=== PATIENT | male | born 1955 | race Caucasian/White ===

== ENCOUNTER 2023-05-16 14:15 | Inpatient (IN) | payer MEDICARE, SELFPAY ==
[2023-05-16] VITALS (39 sets, daily range): BP systolic 141–179; BP diastolic 79–114; PULSE 75–152; RESP 12–36; TEMP 36.7–37.1; O2SAT 91–100; BMI 31.1
--- NOTE | ~2023-05-16 | US_ITS ---
EXAMINATION: US abdomen limited DATE: 05/17/2023 11:34 INDICATION: Gallbladder distention. TECHNIQUE: Multiple grayscale and Doppler ultrasound images of the abdomen were obtained. COMPARISON: Chest CT 05/16/2023 FINDINGS: The visualized portions of the head, body, and tail of the pancreas are normal. The liver i s normal without focal lesion. There is normal flow in main portal vein. The gallbladder is normal in size. No gallstones or gallbladder wall thickening. There is no sonographic Felix sign. The common duct is normal and measures 4 mm. IMPRESSION: 1. Normal right upper quadrant ultrasound. Reviewed, dictated and finalized at location E.
--- NOTE | ~2023-05-16 | US_ITS ---
EXAMINATION: US retroperitoneal duplex ltd DATE: 05/17/2023 11:32 INDICATION: Renal artery stenosis or occlusion. TECHNIQUE: Multiple grayscale, color Doppler, and pulsed Doppler images of the kidneys and renal joshua christin were obtained. COMPARISON: Chest CT 05/16/2023 FINDINGS: The aorta peak systolic velocity is 88 cm/s. The right renal artery peak systolic velocity is 52 cm/s in the proximal segment, 47 cm/s in the mid segment, and 57 cm/s in the distal segment. The left sonny al artery peak systolic velocity is 60 cm/s in the proximal segment, 94 cm/s in the mid segment, and 94 cm/s in the distal segment. IMPRESSION: 1. No Doppler evidence of renal artery stenosis. Given the CT findings, consider abdomen CTA. Reviewed, dictated and finalized at location E. IMPRESSION: 1. No Doppler evidence of renal artery stenosis. Given the CT findings, consid er abdomen CTA.
--- NOTE | ~2023-05-16 | XR_ITS ---
EXAMINATION: XR chest 1V portable DATE: 05/16/2023 14:49 INDICATION: Chest pain. TECHNIQUE: A single frontal view of the chest was obtained. COMPARISON: None. FINDINGS: There are airspace opacities in right mid and upper lung zones with volume loss. No pleural effusion or pneumothorax. The heart size is normal. There is enlargement of the right hilum. IMPRESSION: 1. Airspace opacities in right mid and upper lung zones with volume loss, consistent with atelectasis /scarring versus pneumonia. 2. Enlargement of the right hilum suspicious for lymphadenopathy. Consider chest CT. Reviewed, dictated and finalized at location A. IMPRESSION: 1. Airspace opacities in right mid and upper lung zones with volume loss, consi stent with atelectasis/scarring versus pneumonia. 2. Enlargement of the right hilum suspicious for lymphadenopathy. Consider ches t CT.
--- NOTE | ~2023-05-16 | CT_ITS ---
EXAMINATION: CTA chest PE protocol DATE: 05/16/2023 16:11 INDICATION: Chest pain. Shortness of breath. TECHNIQUE: Computed tomography angiography (CTA) of the chest was performed with 100 mL Omnipaque-350 intravenous contrast timed to evaluate the pulmonary arteries. Coronal maximum intensity projection 3D-reconstructions were created by the technologist. Automated exposure control and iterative reconst ruction technique were employed. The dose-length product was 515.89 mGy-cm. COMPARISON: Chest single view 05/16/2023 FINDINGS: There is mild emphysema. There are airspace opacities with bronchiectasis and volume loss i nvolving right upper lobe, consistent with scarring. There is mild atelectasis bilaterally. There is a small right pleural effusion. The heart size is normal. There are coronary artery calcifications. N o pericardial effusion. There is no pulmonary embolus. There is mild right hilar lymphadenopathy. The re are gallstones in the gallbladder, which is distended. Partially visualized is severe stenosis heather rio occlusion of right renal artery. Partially visualized is volume loss and hypoenhancement of right kidney. There is severe cervical spondylosis and mild thoracic spondylosis. There are bridging endpl ate osteophytes at multiple levels in the spine, consistent with diffuse idiopathic skeletal hyperost osis (DISH). IMPRESSION: 1. Scarring in right lung upper lobe. 2. Mild right hilar lymphadenopathy, likely reactive. 3. Mild emphysema. 4. Small right pleural effusion. 5. No pulmonary embolus. 6. Partially visualized severe stenosis versus occlusion of right renal artery with partially visuali zed atrophy and hypoenhancement of right kidney. 7. Cholelithiasis. Gallbladder distention may be secondary to fasting or acute cholecystitis. Correla te with physical exam. Reviewed, dictated and finalized at location A. IMPRESSION: 1. Scarring in right lung upper lobe. 2. Mild right hilar lymphadenopathy, likely reactive. 3. Mild emphysema. 4. Small right pleural effusion. 5. No pulmonary embolus. 6. Partially visualized severe stenosis versus occlusion of right renal artery with partially visualized atrophy and hypoenhancement of right kidney. 7. Cholelithiasis. Gallbladder distention may be secondary to fasting or acute cholecystitis. Correlate with physical exam.
--- NOTE | 2023-05-16 14:23 | ECG_ITS ---
Measurements Intervals [place] Rate: 151 P: CT: 0 QRS: 3 QRSD: 88 T: 93 QT: 280 QTc: 444 Interpretive Statements ATRIAL FLUTTER/TACHYCARDIA WITH RAPID VENTRICULAR RESPONSE LEFT VENTRICULAR HYPERTROPHY WITH ST-T CHANGE CANNOT RULE OUT SEPTAL INFARCT, AGE INDETERMINATE BORDERLINE ST-T WAVE ABNORMALITY- HIGH LATERAL LEADS ABNORMAL ECG NO PREVIOUS ECG AVAILABLE FOR COMPARISON Electronically Signed On 05-16-2023 17:22:54 CDT by Josiah Celis D.O.
--- NOTE | 2023-05-16 14:27 | ED.CHESTPAIN ---
HPI - Chest Pain General Chief Complaint: Chest Pain Stated Complaint: STEMI Time Seen by Provider: 05/16/23 14:23 History of Present Illness HPI narrative: Patient is a 67 year old male with history of HTN, active smoker, social ETOH use here with chest pain and flu like symptoms. He notes that 3-4 days ago he began feeling generally unwell. He describes feeling like he was coming down with the flu, describing body aches, fatigue, faint cough. Yesterday he had some intermittent chest pains however last night around 2 am he began having more persistent pain, prompting him to contact EMS to be brought into the hospital. He received 3 nitroglycerin and aspirin en route by EMS. he currently reports midsternal chest pain which radiates to the front and back of his chest. Is unable to identify if he has been experiencing lightheadedness, nausea, diaphoresis. He is unsure if the pain got worse with exertion today. He denies any prior cardiac history, no history of abnormal heart rhythm that he is aware of. Related Data Allergies Allergy/AdvReac Type Severity Reaction Status Date / Time levofloxacin Allergy Unknown HANDS Verified 07/05/14 08:29 LOCKED UP Review of Systems Review of Systems: All systems reviewed & are unremarkable except as noted in HPI and below PMFSH Past Medical History Medical History HTN (hypertension) Smoker Social History Social History Smoking packs per day: 1 Smoking cigarettes per day: 20.0 Years smoked: 56 Smoking pack-years: 56.00 Smoking status: Current every day smoker Tobacco type: cigarettes Second hand tobacco smoke exposure: No Alcohol intake: current Drinks per week: 18 Substance use: current Substance use type: marijuana Do You Feel Safe in your Home?: Yes Lack of Transportation: No Lack of Food: Never True Current Housing: I Have Housing Concerned About Future Housing: No Difficulty Paying Gas/Electric Bills: No Difficulty Paying for Meds: No Currently Unemployed: No Education: High School Diploma/GED Difficulty w/ Childcare or Family Care: No Gender identity (if verbalized by the patient): Male Sexual Orientation (if Verbalized by the Patient): Straight or Heterosexual Spiritual care concerns: No Exam Narrative: GENERAL: Well-appearing, well-nourished, and in no acute distress. HEAD: Normocephalic, atraumatic. EYES: PERRLA and EOMI. ENT: Nares clear. Mucous membranes moist. NECK: Supple. CHEST: Clear to auscultation. No respiratory distress. HEART: Regular rate and rhythm. Normal peripheral pulses. ABDOMEN: Soft, nontender, nondistended. EXTREMITIES: Normal range of motion. No edema. SKIN: Warm, dry, no rash. NEURO: No focal deficits. Alert and oriented x3. PSYCH: Normal mood and affect. Course Course Emergency Course: Received phone call from EMS, they alerted a STEMI alert field. EMS EKG transmitted. does not appear to be a definitive STEMI based on EMS EKG, does appear to be in AFib versus a flutter with a heart rate in the 140s. EMS EKG shared with on-call reprographics associate, Dr. Dorsey, not a definitive STEMI, Will do repeat on arrival. Repeat EKG performed on patient arrival, shared with reprographics associate. Agrees that patient appears to be in atrial flutter, recommends single dose of Lopressor followed by a esmolol drip should patient remain in AFib with RVR. Will heparinize the patient. laborer pole crew to be called off at this time. After 5 mg of Lopressor patient's heart rate gone down between the 60s and occasionally short runs in the 140s. Will hold on as well at this time. Repeat EKG continues to show no acute STEMI. Patient's heart rate now consistently in the 70s to 80s and appears to be in sinus on the monitor. Patient re-evaluated, is having no active chest pain. Lab work and imaging reviewed. White blood cell count elevated at 12.4, electrolytes grossly normal with normal re
--- NOTE | 2023-05-16 14:32 | PC.NURSE ---
1407 stemi o/h 1408 Dr. Dorsey-care process manager notified 1410 kiarra sent 1410 kati called for standby truck 1424 stemi cancelled
[2023-05-16 14:39] LABS: Basophils Percent Auto 0.3 % (0.2-1.2); Eosinophils Absolute Auto 0.1 K/mm3 (0-0.3); Eosinophils Percent Auto 0.6 % (0-4.4); Hematocrit 40.5 % (42.0-52.0); Hemoglobin 13.7 g/dL (14.0-18.0); Immature Granulocyte Absolute 0.04 K/mm3 (0.00-0.031); Immature Granulocyte Percent A 0.3 % (0-0.5); Lymphocytes Percent Auto 5.6 % (18.3-44.2); Mean Corpuscular HGB Conc 33.8 g/dl (32-36); Mean Corpuscular Hemoglobin 29.8 pg (26-34); Mean Platelet Volume 9.9 fl (7.4-10.4); Monocytes Percent Auto 7.7 % (2.6-8.5); Neutrophils Absolute Auto 10.6 K/mm3 (1.3-6.7); Neutrophils Percent Auto 85.5 % (45.5-73.1); Platelet Count Result 241 k/mm3 (150-375); Red Cell Distribution Width 12.5 % (11.5-14.5); White Blood Count 12.4 K/mm3 (4.5-10.0)
[2023-05-16] MEDS: METOPROLOL TARTRATE INJ 5 MG/5 ML VIAL IV PUSH (14:47)
[2023-05-16] MEDS: LACTATED RINGERS 1,000 ML 999 ML IV CONT (14:47)
[2023-05-16 14:50] LABS: Alanine Aminotransferase 20 U/L (6-50); Alkaline Phosphatase 64 U/L (38-126); Anion Gap 8 mmol/L (4-12); Aspartate Amino Transferase 23 U/L (17-59); Bilirubin,Total 0.9 mg/dL (0.2-1.3); Blood Urea Nitrogen 18 mg/dL (9-20); Carbon Dioxide 29 mmol/L (22-30); Chloride 96 mmol/L (98-107); Estimated CRCL calculation 70 ml/min; Estimated Glomerular Filt Rate > 60; Glucose 121 mg/dL (65-110); Lipase 50 U/L (23-300); Potassium 3.3 mmol/L (3.4-5.0); Sodium 133 mmol/L (137-145)
[2023-05-16 14:57] LABS: INR 1.1; Prothrombin Time 14.6 Seconds (11.1-14.7)
[2023-05-16 14:58] LABS: Partial Thromboplastin Time 27.5 Seconds (22.3-36.8)
[2023-05-16] MEDS: HEPARIN SOD/D5W 100 UNITS/ML 25,000 UNITS/250 ML BAG 15 UNITS IV CONT (14:58)
[2023-05-16 14:59] LABS: NT Pro B Type Natriuretic Pept 4390 pg/mL (19.9-100)
[2023-05-16] MEDS: HEPARIN SODIUM 5,000 UNITS/ML VIAL 6500 UNITS IV PUSH (14:59)
--- NOTE | 2023-05-16 15:00 | ECG_ITS ---
Measurements Intervals [place] Rate: 80 P: 72 [place]: 163 QRS: 20 QRSD: 98 T: 99 QT: 342 QTc: 395 Interpretive Statements ATRIAL FLUTTER/TACHYCARDIA CHANGES TO SINUS BRADYCARDIA ATRIAL PREMATURE COMPLEXES CANNOT RULE OUT SEPTAL INFARCT, AGE INDETERMINATE LEFT VENTRICULAR HYPERTROPHY WITH ST-T CHANGE BORDERLINE ST-T WAVE ABNORMALITY- HIGH LATERAL LEADS ABNORMAL ECG COMPARED TO ECG 05/16/2023 14:19:00 SINUS RHYTHM NOW PRESENT Electronically Signed On 05-16-2023 17:22:00 CDT by Josiah Celis D.O.
[2023-05-16 15:05] LABS: Troponin I 0.079 ng/mL (0.000-0.034)
[2023-05-16 15:15] LABS: Influenza A QL RT-PCR Negative (Negative); Influenza B QL RT-PCR Negative (Negative); RSV RNA, RT-PCR Negative (Negative); SARS-CoV-2 RNA PCR Negative (Negative)
--- NOTE | 2023-05-16 15:33 | ECG_ITS ---
Measurements Intervals [place] Rate: 81 P: 73 [place]: 154 QRS: 31 QRSD: 98 T: 97 QT: 357 QTc: 416 Interpretive Statements SINUS RHYTHM SUPRAVENTRICULAR TRIGEMINY LEFT VENTRICULAR HYPERTROPHY WITH ST-T CHANGE CANNOT RULE OUT SEPTAL INFARCT, AGE INDETERMINATE BORDERLINE ST-T WAVE ABNORMALITY- LAT/HIGH LAT LEADS BASELINE ARTIFACT- II, III, AVF ABNORMAL ECG COMPARED TO ECG 05/16/2023 15:06:50 SINUS RHYTHM NOW PRESENT Electronically Signed On 05-16-2023 20:58:43 CDT by Josiah Celis D.O.
[2023-05-16] MEDS: METOPROLOL SUCCINATE EXT REL 25 MG TABCR PO (15:52)
[2023-05-16 16:07] LABS: Lactic Acid Reflex 0.9 mmol/L (0.7-2.0)
[2023-05-16] MEDS: DOXYCYCLINE 100 MG/NS 100 ML 100 MG/100 ML BAG IVPB (16:39)
[2023-05-16 17:56] LABS: Troponin I 0.101 ng/mL (0.000-0.034)
--- NOTE | 2023-05-16 18:21 | PM.IMHP ---
H&P: HPI History of Present Illness Date/Time: 05/16/23 18:21 Chief Complaint: Chest Pain Narrative: 67 y/o M presents here with chest pain with PMH of HTN and current smoker. Patient presents here from home via EMS for further evaluation of chest pain and flu like symptoms. Patient reports that he began to feel unwell approximately 3-4 days ago. Initially started with body aches, fatigue, and intermittent/shallow/intermittently productive cough. Developed intermittent chest pain yesterday around 1999 (Thursday). Described the chest pain as burning, 7/10, radiating (more so from between his shoulder blades and into the front) and lasting for 5-10 initially, then progressed to longer time frames until it was constant around 1330 Thursday afternoon. Patient unable to estimate how many episodes of chest pain occurred. Patient then called EMS, who gave him 3 nitro and 324 of ASA with partially resolution. STEMI alert in the field, EKG was transmitted which appeared to be AFib versus Aflutter with rate in the 140s. Repeat EKG upon arrival showed atrial flutter. No emergent cardiac catheterization indicated. No alleviating or aggravating factors identified by patient, did have some relief with nitro and ASA. Denies any further cardiac history beyond hypertension. No history of dysrhythmia. No recent nausea, vomiting, diarrhea, or epigastric pain. No acute onset of flank pain or abdominal pain. Caffeine intake estimated at 40+ oz of coffee daily. Alcohol use is daily 2-3 beers, previously heavy. Initial VS at presentation: 98.0? F, HR 151, RR 20, 149/114, and 93% on room air. ED workup showed: WBC 12.4, HGB 13.7, sodium 133, potassium 3.3, creatinine 0.9, glucose 121, initial troponin 0.079, BNP 4390, and viral PCR negative. LFTs and lipase unremarkable. CXR showed airspace opacities in the right mid and upper lung zones with volume loss and enlargement of the right hilum suspicious for lymphadenopathy. Review of Systems Review of Systems: All systems reviewed & are unremarkable except as noted in HPI and below PMFSH Past Medical History Medical History HTN (hypertension) Smoker Surgical History Surgical History No history of previous surgery Family History Family History Grandparent Hypertension Social History Social History Smoking packs per day: 1 Smoking cigarettes per day: 20.0 Years smoked: 56 Smoking pack-years: 56.00 Smoking status: Current every day smoker Tobacco type: cigarettes Second hand tobacco smoke exposure: No Alcohol intake: current Drinks per week: 18 Substance use: current Substance use type: marijuana Do You Feel Safe in your Home?: Yes Lack of Transportation: No Lack of Food: Never True Current Housing: I Have Housing Concerned About Future Housing: No Difficulty Paying Gas/Electric Bills: No Difficulty Paying for Meds: No Currently Unemployed: No Education: High School Diploma/GED Difficulty w/ Childcare or Family Care: No Gender identity (if verbalized by the patient): Male Sexual Orientation (if Verbalized by the Patient): Straight or Heterosexual Spiritual care concerns: No Meds Home Medications and Allergies Home Medications Medication Instructions Recorded Confirmed Type albuterol sulfate 90 mcg/actuation 2 puff inhalation Q4H PRN SOB or 05/16/23 05/16/23 History aerosol inhaler wheezing amlodipine 5 mg tablet 5 mg PO DAILY 05/16/23 05/16/23 History losartan 100 mg tablet 100 mg PO DAILY 05/16/23 05/16/23 History meloxicam 15 mg tablet 15 mg PO DAILY PRN Pain 05/16/23 05/16/23 History Allergies Allergy/AdvReac Type Severity Reaction Status Date / Time levofloxacin Allergy Unknown HANDS Verified 07/05/14 08:29 LOCKED UP Vital Signs Vital Sign
[2023-05-16] MEDS: METOPROLOL TARTRATE 25 MG TABLET PO (20:22)
--- NOTE | 2023-05-16 20:44 | ADMGEN ---
This patient, Richard Brooks, was admitted to IMU Room 213-01. Patient/family oriented to hospital policies and general routines including ID bracelet, bed and alarms, visiting hours, pain management, procedures, bathroom and other care routines, personal items, smoking policy, room service/diet, and visiting hours. Information on how to activate the Rapid Response Team has been discussed. Patient/Family are encouraged to report perceived risks to care and to ask questions if they do not understand what they are told or what they should do.
[2023-05-16 22:22] LABS: Troponin I 0.094 ng/mL (0.000-0.034)
[2023-05-16] MEDS: HEPARIN SODIUM 5,000 UNITS/ML VIAL 3500 UNITS IV PUSH (22:24)
[2023-05-17] VITALS (20 sets, daily range): BP systolic 132–182; BP diastolic 67–84; PULSE 71–92; RESP 16–54; TEMP 36.3–36.9; O2SAT 90–95
[2023-05-17] MEDS: methylPREDNISolone SOD SUCC 125 MG VIAL IV PUSH (03:04)
[2023-05-17 04:50] LABS: Basophils Percent Auto 0.2 % (0.2-1.2); Eosinophils Percent Auto 0.4 % (0-4.4); Hematocrit 36.6 % (42.0-52.0); Hemoglobin 12.2 g/dL (14.0-18.0); Immature Granulocyte Absolute 0.04 K/mm3 (0.00-0.031); Immature Granulocyte Percent A 0.4 % (0-0.5); Lymphocytes Percent Auto 6.3 % (18.3-44.2); Mean Corpuscular HGB Conc 33.3 g/dl (32-36); Mean Corpuscular Hemoglobin 29.8 pg (26-34); Mean Corpuscular Volume 89.3 fl (80-100); Mean Platelet Volume 10.7 fl (7.4-10.4); Monocytes Absolute Auto 0.7 K/mm3 (0.1-0.6); Monocytes Percent Auto 6.6 % (2.6-8.5); Neutrophils Absolute Auto 9.6 K/mm3 (1.3-6.7); Neutrophils Percent Auto 86.1 % (45.5-73.1); Platelet Count Result 210 k/mm3 (150-375); Red Cell Distribution Width 12.7 % (11.5-14.5); White Blood Count 11.1 K/mm3 (4.5-10.0)
[2023-05-17 05:03] LABS: Partial Thromboplastin Time 130.8 Seconds (22.3-36.8)
[2023-05-17 05:13] LABS: Alanine Aminotransferase 55 U/L (6-50); Albumin Level 3.8 g/dL (3.5-5.1); Alkaline Phosphatase 73 U/L (38-126); Anion Gap 4 mmol/L (4-12); Aspartate Amino Transferase 50 U/L (17-59); Bilirubin,Total 0.6 mg/dL (0.2-1.3); Blood Urea Nitrogen 21 mg/dL (9-20); Calcium 8.6 mg/dL (8.4-10.2); Carbon Dioxide 30 mmol/L (22-30); Chloride 98 mmol/L (98-107); Estimated CRCL calculation 78 ml/min; Estimated Glomerular Filt Rate > 60; Glucose 143 mg/dL (65-110); Potassium 3.3 mmol/L (3.4-5.0); Sodium 132 mmol/L (137-145)
[2023-05-17] MEDS: HEPARIN SOD/D5W 100 UNITS/ML 25,000 UNITS/250 ML BAG 15 UNITS IV CONT (05:24)
[2023-05-17] MEDS: IPRATROPIUM 0.5 MG/ALBUTEROL SULFATE 2.5 MG AMPUL.NEB 3 ML INHALATION ×3 (08:45→20:53)
[2023-05-17] MEDS: LOSARTAN POTASSIUM 100 MG TABLET PO (09:08)
[2023-05-17] MEDS: METOPROLOL TARTRATE 25 MG TABLET PO ×2 (09:08→11:58)
[2023-05-17] MEDS: predniSONE 20 MG TABLET 40 MG PO (09:08)
[2023-05-17] MEDS: amLODIPine BESYLATE 5 MG TABLET PO (09:08)
--- NOTE | 2023-05-17 10:38 | PM.IMPN ---
Progress Note: A&P Assessment and Plan (1) Atrial fibrillation with rapid ventricular response: Code(s): I48.91 - Unspecified atrial fibrillation Status: Acute (2) Pneumonia: Code(s): J18.9 - Pneumonia, unspecified organism Status: Acute (3) HTN (hypertension): Code(s): I10 - Essential (primary) hypertension Status: Acute (4) Smoker: Code(s): F17.200 - Nicotine dependence, unspecified, uncomplicated Status: Acute Plan Atrial flutter/tachycardia with RVR found UOA Now has sinus rhythem start heparin, no need for emergent catheterization, and give metoprolol.? If not able to resolve AFib RVR, start esmolol gtt. - started on heparin gtt - CHADS Vasc: 2, if echo shows HF will be a 3 - given metoprolol 5 mg IVP, then started on metoprolol 25 mg p.o., continue b.i.d. - add lipid panel - no previous echo or stress test on file, echo ordered - telemetry monitoring Appreciate cardiology consultation, continue metoprolol 50 mg b.i.d. p.o., discontinue heparin drip, start Eliquis 5 mg b.i.d. p.o. (2) Pneumonia: ?Code(s): J18.9 - Pneumonia, unspecified organism ?Status:?Acute ?Assessment and Plan: - CXR: 1. Airspace opacities in right mid and upper lung zones with volume loss, consistent with atelectasis/scarring versus pneumonia. 2. Enlargement of the right hilum suspicious for lymphadenopathy. Consider chest CT. - CTA of Chest 1. Scarring in right lung upper lobe. 2. Mild right hilar lymphadenopathy, likely reactive. 3. Mild emphysema. 4. Small right pleural effusion. 5. No pulmonary embolus. 6. Partially visualized severe stenosis versus occlusion of right renal artery with partially visualized atrophy and and hypoenhancement of right kidney. 7. Cholelithiasis. Gallbladder distention may be secondary to fasting or acute cholecystitis. Correlate with physical exam. - symptom onset 3-4 days ago - risk factors for CAP:? none - complicating factors: smoker, likely has emphysema - started on ceftriaxone and doxycycline on 05/15 - add steroids: Solu-Medrol 125 IVP x1, then Prednisone 40 mg p.o. daily x5 days, given patient likely has underlying COPD - blood cultures obtained on 05/15 - sputum culture ordered, if obtainable - no supplemental O2 need - supportive care nebs iveth dallasn ester sultana p.r.n. - trend labs Mild emphysema on CTA no PE 05/16: Patient still has productive cough with phlegm, continue antibiotics, discontinue methylprednisone, changed to prednisone 40 mg daily p.o. Cholelithiasis. Gallbladder distention may be secondary to fasting or acute cholecystitis. - gallbladder symptoms: pain between shoulder blades and mild epigastric pain with moderate to deep palpation. - no sudden flank pain - renal US laurie - US RUQ - trend renal function - monitor LFTs Consult GS HTN (hypertension): ?Code(s): I10 - Essential (primary) hypertension ?Status:?Acute ?Assessment and Plan: - chronic, currently 182/84 - continue home medications:? Amlodipine 5 mg daily, losartan 100 mg daily - monitor Smoker: ?Code(s): F17.200 - Nicotine dependence, unspecified, uncomplicated ?Status:?Acute ?Assessment and Plan: - 1 PPD x 56 years - discussed smoking cessation0, currently in contemplative phase of readiness Subjective Date/time seen: 05/17/23 10:38 Interval history: I saw exam patient today. Patient denies palpitation, shortness breast, but still has cough with phlegm. Current patient has a sinus rhythm, afebrile, blood pressure stable Exam Narrative: GENERAL: Pleasant, in no acute distress. Well-nourished. - EYES: EOMI. Anicteric. - HENT: Moist mucous membranes. - LUNGS: Clear to auscultation bilaterally, no wheezing, rhonchi, or rales. - CARDIOVASCULAR: Regular rate and rhythm. No murmur. No JVD. - ABDOMEN: Soft, non-tender and non-distended. No palpable masses. - EXTREMITIES: No inder
[2023-05-17 11:26] LABS: Partial Thromboplastin Time 54.5 Seconds (22.3-36.8)
[2023-05-17] MEDS: POTASSIUM CHLORIDE 20 MEQ ER TABLET 40 MEQ PO (11:59)
[2023-05-17] MEDS: HEPARIN SODIUM 5,000 UNITS/ML VIAL 6500 UNITS IV PUSH (12:00)
--- NOTE | 2023-05-17 13:06 | PM.CNCAR ---
Assessment and Plan Assessment and plan (1) Atrial flutter with rapid ventricular response: Code(s): I48.92 - Unspecified atrial flutter Status: Acute Assessment and Plan: Patient presents with new onset atrial flutter which was symptomatic with fluttering, chest pain weakness improved with reversion sinus rhythm after IV metoprolol. Patient maintaining sinus rhythm this time. We discussed pathophysiology of atrial fibrillation and/or atrial flutter risk for embolic stroke risk over time management strategy premedications, ablation, aspirin versus systemic anticoagulation at the balance of bleeding versus stroke risk. Patient verbalized understanding. All questions answered to his satisfaction. CHADS2 Vasc score 2. Systemic anticoagulation advised. -will discontinue heparin infusion transition to oral systemic anticoagulation with Eliquis 5 mg twice daily. If falls, injury or bleeding presents Neer's urine via EMS. Risk for potential life-threatening or fatal intracerebral bleed with trauma on systemic anticoagulation. -continue metoprolol tartrate increase to 50 mg twice daily as tolerated for additional heart rate control and reduction risk for recurrence. We discussed outpatient referral to electrophysiology for ablation of atrial flutter options particular with recurrence. Continue conservative medical management for the time being. -continue telemetry. TSH normal. Replete potassium keep closer to 4.0 as hypokalemia will increase risk for AFib flutter recurrence. (2) Elevated troponin: Code(s): R79.89 - Other specified abnormal findings of blood chemistry Status: Acute Assessment and Plan: Mild troponin elevation with flat curve not consistent with acute coronary syndrome and/or plaque rupture most likely consistent with type 2 infarction related to demand ischemia as patient presented sick with pneumonia and atrial flutter with rapid ventricular response. However, given age, risk factors including tobacco abuse, hypertension cannot exclude underlying CAD. Would recommend outpatient noninvasive ischemic evaluation provided patient remains relatively asymptomatic and responding to therapy as provided. Follow up as an outpatient in this regard. Addition of aspirin 81 mg daily for the time being reasonable as well. Check lipid panel further risk assessment. (3) Chest pain: Qualifiers: Chest pain type: unspecified Qualified Code(s): R07.9 - Chest pain, unspecified Code(s): R07.9 - Chest pain, unspecified Status: Acute Assessment and Plan: Resolved with termination of atrial flutter. Most likely consistent with atrial tachyarrhythmia cannot exclude underlying CAD as above. Outpatient ischemic evaluation. -obtain 2D echocardiogram to assess LV function, wall motion abnormalities, valve pathology pulmonary pressures chamber size. Recommendation to follow after review. (4) Pneumonia: Code(s): J18.9 - Pneumonia, unspecified organism Status: Acute Assessment and Plan: Management per primary service. Continue IV ceftriaxone and doxycycline. (5) HTN (hypertension): Code(s): I10 - Essential (primary) hypertension Status: Acute Assessment and Plan: Continue losartan 100 mg daily, amlodipine 5 mg daily, metoprolol tartrate 50 mg daily. Additional antihypertensives as BP warrants. (6) Hypokalemia: Code(s): E87.6 - Hypokalemia Status: Acute Assessment and Plan: Patient remains hypokalemic. Replete to keep around 4.0 as above. (7) Smoker: Code(s): F17.200 - Nicotine dependence, unspecified, uncomplicated Status: Acute Assessment and Plan: Smoking cessation counseling. History of Present Illness History of Present Illness Consult date/time: Date of service: 05/17/23 13:06 Requesting physician: Dee Holt APRN Consult reason: atrial fibrillation (Atrial flutter) Reason For Visit: Chest P
[2023-05-17] MEDS: DOXYCYCLINE 100 MG/NS 100 ML 100 MG/100 ML BAG IVPB (16:55)
[2023-05-17 18:28] LABS: Partial Thromboplastin Time 137.1 Seconds (22.3-36.8)
[2023-05-17] MEDS: METOPROLOL TARTRATE 50 MG TAB PO (20:03)
[2023-05-18] VITALS (27 sets, daily range): BP systolic 132–154; BP diastolic 61–95; PULSE 70–150; RESP 16–18; TEMP 36.3–36.9; O2SAT 95–96
--- NOTE | 2023-05-18 | ECHO_ITS ---
Patient Info Name: Richard Brooks Age: 67 years : 1955 Gender: Male Ht: 70 in Wt: 183 lbs BSA: 2.04 m2 HR: 72 bpm BP: 149 / 75 mmHg Heart Rhythm: Tachycardia, Atrial Flutter Technical Quality: Fair Exam Date: 05/18/2023 10:57 AM Exam Location: Echo Lab Patient Status: Inpatient Admit Date: 05/16/2023 Staff Ordering Physician: Dee Holt APRN Crisis Mental [facility] Therapist: Yissel Ace RDCS Attending Provider: Brendan Pinto MD Referring Physician: Jonathon BABB; Exam Type: CA echo dop color flow w con Study Info Indications - new arrhythmia Complete two-dimensional, color flow and Doppler transthoracic echocardiogram is performed with contrast to opacify the left ventricle and to improve the deliniation of the left ventricle endocardial borders. Contrast/Agitated Saline Contrast/Ag. Saline: Definity Amount: 2.00 ml Administered By: Yissel Ace RDCS Existing IV Access: Yes IV Access Condition: patent with no signs of infiltration Summary 1. Left ventricular chamber dimension is normal. 2. Left ventricular systolic function is moderately reduced, estimated at 30-35% with hypokinesis of the mid and basal inferior wall. Accurate assessment of LV systolic function difficult secondary to atrial flutter with rapid ventricular response. Consider repeat limited study to assess LV function once heart rate better controlled. 3. There is moderately increased left ventricular wall thickness. 4. The left ventricular diastolic function is indeterminate. 5. Technically difficult study. Definity contrast enhancement administered. 6. Left atrial chamber dimension is moderately enlarged. 7. There is no aortic valve stenosis. 8. There is trace mitral valve regurgitation. 9. There is mild tricuspid valve regurgitation. 10. No pulmonary hypertension, estimated pulmonary arterial systolic pressure is 23 mmHg. Left Ventricle Left ventricular chamber dimension is normal. Left ventricular systolic function is moderately reduced, estimated at 30-35% with hypokinesis of the mid and basal inferior wall. Accurate assessment of LV systolic function difficult secondary to atrial flutter with rapid ventricular response. Consider repeat limited study to assess LV function once heart rate better controlled. There is moderately increased left ventricular wall thickness. The left ventricular diastolic function is indeterminate. Technically difficult study. Definity contrast enhancement administered. Right Ventricle Right ventricular chamber dimension is normal. Right ventricular systolic function is reduced. Left Atria Left atrial chamber dimension is moderately enlarged. Right Atria Right atrial chamber dimension is normal. Aortic Valve The aortic valve is not well visualized. There is mild aortic valve sclerosis. There is no aortic valve stenosis. There is no aortic valve regurgitation. Pulmonic Valve The pulmonic valve is not well visualized. There is trace pulmonic regurgitation. Mitral Valve The mitral valve has normal leaflets. There is trace mitral valve regurgitation. The mitral valve annulus is mildly calcified. Tricuspid Valve The tricuspid valve leaflets are normal. There is mild tricuspid valve regurgitation. No pulmonary hypertension, estimated pulmonary arterial systolic pressure is 23 mmHg. Pericardium/Pleural The pericardium appears normal. There is no pericardial effusion. Inferior Vena Cava Dilated inferior vena cava with <50% collapse upon inspiration consistent with elevated right atrial
[2023-05-18] MEDS: IPRATROPIUM 0.5 MG/ALBUTEROL SULFATE 2.5 MG AMPUL.NEB 3 ML INHALATION ×4 (02:03→19:25)
[2023-05-18 02:51] LABS: Partial Thromboplastin Time 51.9 Seconds (22.3-36.8)
[2023-05-18] MEDS: HEPARIN SODIUM 5,000 UNITS/ML VIAL 6500 UNITS IV PUSH (02:59)
[2023-05-18] MEDS: HEPARIN SOD/D5W 100 UNITS/ML 25,000 UNITS/250 ML BAG 18 UNITS IV CONT (04:27)
--- NOTE | 2023-05-18 08:47 | PM.PNCARD ---
Progress Note: A&P Assessment and Plan (1) Atrial flutter with rapid ventricular response: Code(s): I48.92 - Unspecified atrial flutter <MICHAEL Hammonds - Last Filed: 05/18/23 12:56> Status: Acute <MICHAEL Hammonds - Last Filed: 05/18/23 12:56> Assessment and Plan: Patient presents with new onset atrial flutter which was symptomatic with fluttering, chest pain weakness improved with reversion sinus rhythm after IV metoprolol. He has reverted back to atrial flutter, rate in the 150's -Discussed possible rhythm control strategies including DCCV vs. electrical cardioversion. He has already eaten today, so DCCV is not an option. After discussing possible risks of amiodarone use, decision was made to proceed with initiating IV amiodarone. -CHADS2 Vasc score 2. Systemic anticoagulation advised. Will discontinue heparin infusion transition to oral systemic anticoagulation with Eliquis 5 mg twice daily. -continue telemetry. -Replete potassium keep closer to 4.0 as hypokalemia will increase risk for AFib/flutter recurrence. -Echo is pending <MICHAEL Hammonds - Last Filed: 05/18/23 12:56> (2) Elevated troponin: Code(s): R79.89 - Other specified abnormal findings of blood chemistry <MICHAEL Hammonds - Last Filed: 05/18/23 12:56> Status: Acute <MICHAEL Hammonds - Last Filed: 05/18/23 12:56> Assessment and Plan: Mild troponin elevation with flat curve not consistent with acute coronary syndrome and/or plaque rupture most likely consistent with type 2 infarction related to demand ischemia in the setting of pneumonia and atrial flutter with rapid ventricular response. -recommend outpatient noninvasive ischemic evaluation <MICHAEL Hammonds - Last Filed: 05/18/23 12:56> (3) Chest pain: Qualifiers: Chest pain type: unspecified Qualified Code(s): R07.9 - Chest pain, unspecified <MICHAEL Hammonsd - Last Filed: 05/18/23 12:56> Code(s): R07.9 - Chest pain, unspecified <MICHAEL Hammonds - Last Filed: 05/18/23 12:56> Status: Acute <MICHAEL Hammonds - Last Filed: 05/18/23 12:56> Assessment and Plan: Resolved with termination of atrial flutter. Most likely consistent with atrial tachyarrhythmia cannot exclude underlying CAD as above. Outpatient ischemic evaluation. -Echo pending <MICHAEL Hammonds - Last Filed: 05/18/23 12:56> (4) Pneumonia: Code(s): J18.9 - Pneumonia, unspecified organism <MICHAEL Hammonds - Last Filed: 05/18/23 12:56> Status: Acute <MICHAEL Hammonds - Last Filed: 05/18/23 12:56> Assessment and Plan: Management per primary service. Continue IV ceftriaxone and doxycycline. <MICHAEL Hammonds - Last Filed: 05/18/23 12:56> (5) HTN (hypertension): Code(s): I10 - Essential (primary) hypertension <MICHAEL Hammonds - Last Filed: 05/18/23 12:56> Status: Acute <MICHAEL Hammonds - Last Filed: 05/18/23 12:56> Assessment and Plan: Continue losartan 100 mg daily, amlodipine 5 mg daily, metoprolol tartrate 50 mg daily. Additional antihypertensives as BP warrants. <MICHAEL Hammonds - Last Filed: 05/18/23 12:56> (6) Hypokalemia: Code(s): E87.6 - Hypokalemia <MICHAEL Hammonds - Last Filed: 05/18/23 12:56> Status: Acute <MICHAEL Hammonds - Last Filed: 05/18/23 12:56> Assessment and Plan: Patient remains hypokalemic. Will give 40 mEq KCL x 1 now <MICHAEL Hammonds - Last Filed: 05/18/23 12:56> (7) Smoker: Code(s): F17.200 - Nicotine dependence, unspecified, uncomplicated <MICHAEL Hammonds - Last Filed: 05/18/23 12:56> Status: Acute <MICHAEL Hammonds - Last Filed: 05/18/23 12:56> Assessment and Plan: Smoking cessation counseling. <MICHAEL Hammonds - Last Filed: 05/18/23 12:56> Assessment and Plan: Atten
[2023-05-18] MEDS: predniSONE 20 MG TABLET 40 MG PO (09:25)
[2023-05-18] MEDS: amLODIPine BESYLATE 5 MG TABLET PO (09:25)
[2023-05-18] MEDS: LOSARTAN POTASSIUM 100 MG TABLET PO (09:25)
[2023-05-18] MEDS: METOPROLOL TARTRATE 25 MG TABLET 75 MG PO ×2 (09:28→21:53)
[2023-05-18] MEDS: POTASSIUM CHLORIDE 20 MEQ ER TABLET 40 MEQ PO (09:29)
--- NOTE | 2023-05-18 09:55 | PM.CNGS ---
Assessment and Plan Assessment and plan (1) Cholelithiasis: Qualifiers: Cholelithiasis location: gallbladder Cholecystitis presence: without cholecystitis Biliary obstruction: without biliary obstruction Qualified Code(s): K80.20 - Calculus of gallbladder without cholecystitis without obstruction Code(s): K80.20 - Calculus of gallbladder without cholecystitis without obstruction Status: Acute Assessment and Plan: Patient presented with chest pain, pneumonia, elevated troponin, and atrial flutter. CTA chest initially showed cholelithiasis with gallbladder distention, possible cholecystitis. The patient's chest pain resolved after his atrial flutter was treated and he converted. He is completely asymptomatic. He has no RUQ tenderness or any abdominal tenderness on exam. Ultrasound is more specific and was done today without any signs abnormalities or signs of cholecystitis. No indication for cholecystectomy. Will sign off at this time. Please call with any surgical concerns or questions. (2) Chest pain: Qualifiers: Chest pain type: unspecified Qualified Code(s): R07.9 - Chest pain, unspecified Code(s): R07.9 - Chest pain, unspecified Status: Acute Assessment and Plan: Resolved. Seems cardiac related. (3) Atrial flutter with rapid ventricular response: Code(s): I48.92 - Unspecified atrial flutter Status: Acute (4) Elevated troponin: Code(s): R79.89 - Other specified abnormal findings of blood chemistry Status: Acute (5) Pneumonia: Code(s): J18.9 - Pneumonia, unspecified organism Status: Acute (6) HTN (hypertension): Code(s): I10 - Essential (primary) hypertension Status: Acute (7) Smoker: Code(s): F17.200 - Nicotine dependence, unspecified, uncomplicated Status: Acute Plan I have discussed the patient's case and plan of care with Dr. Isbell. History of Present Illness Consult details Consult date: 05/18/23 Reason for consult: other (Cholelithiasis, Possible acute cholecystitis) Requesting physician: Maria Guadalupe Stephenson MD Narrative: This is a 67-year-old man who is a smoker with a history of hypertension, who we have been asked to see in surgical consultation for cholelithiasis with possible acute cholecystitis. Presented to the ER 2 days ago with chest pain and flu-like symptoms. He reports about 4 days ago feeling unwell with body aches, fatigue, intermittent midsternal chest pain, productive cough, and shortness of breath. He had a heart rate monitor at home and was checking his heart rate, which would was as high as the 150s when he woke up on Thursday. He does report radiation of his chest pain into his mid upper back. His pain would go ?back and forth? from his back to his chest. This was not aggravated by food. He denies ever having this pain in the past. His chest pain slowly progressed and ultimately led him to call EMS Thursday when his chest pain became constant. He was given nitroglycerin and 324 mg aspirin by EMS. STEMI alert called in field, but EKG repeated in the ER and showed atrial flutter with a heart rate in the 140s. Cardiology was consulted and felt this was not a STEMI. He was given Lopressor and converted. [place] [address], sodium 133, potassium 3.3, BNP 4390, initial troponin 0.079. LFTs and lipase normal. Chest x-ray showed atelectasis versus pneumonia, and enlargement of the right hilum suspicious for lymphadenopathy. CTA of the chest showed scarring in right upper, mild right hilar lymphadenopathy likely reactive, mild emphysema, small right pleural effusion, no PE, and partially visualized severe stenosis versus occlusion of right renal artery with partially visualized atrophy and hypoenhancement of right kidney. Also noted on CTA was cholelithiasis with gallbladder distension that may be secondary to fasting or acute cholecystitis. He was admitted to the IMU a
--- NOTE | 2023-05-18 10:08 | PM.IMPN ---
Progress Note: A&P Assessment and Plan (1) Atrial fibrillation with rapid ventricular response: Code(s): I48.91 - Unspecified atrial fibrillation Status: Acute (2) Pneumonia: Code(s): J18.9 - Pneumonia, unspecified organism Status: Acute (3) HTN (hypertension): Code(s): I10 - Essential (primary) hypertension Status: Acute (4) Smoker: Code(s): F17.200 - Nicotine dependence, unspecified, uncomplicated Status: Acute Plan Atrial flutter/tachycardia with RVR found UOA Now has sinus rhythem start heparin, no need for emergent catheterization, and give metoprolol.? If not able to resolve AFib RVR, start esmolol gtt. - started on heparin gtt - CHADS Vasc: 2, if echo shows HF will be a 3 - given metoprolol 5 mg IVP, then started on metoprolol 25 mg p.o., continue b.i.d. - add lipid panel - no previous echo or stress test on file, echo ordered - telemetry monitoring Appreciate cardiology consultation, continue metoprolol 50 mg b.i.d. p.o., discontinue heparin drip, start Eliquis 5 mg b.i.d. p.o. 05/17 paroxysmal AFib today, hemodynamically stable, pending echo report (2) Pneumonia: ?Code(s): J18.9 - Pneumonia, unspecified organism ?Status:?Acute ?Assessment and Plan: - CXR: 1. Airspace opacities in right mid and upper lung zones with volume loss, consistent with atelectasis/scarring versus pneumonia. 2. Enlargement of the right hilum suspicious for lymphadenopathy. Consider chest CT. - CTA of Chest 1. Scarring in right lung upper lobe. 2. Mild right hilar lymphadenopathy, likely reactive. 3. Mild emphysema. 4. Small right pleural effusion. 5. No pulmonary embolus. 6. Partially visualized severe stenosis versus occlusion of right renal artery with partially visualized atrophy and and hypoenhancement of right kidney. 7. Cholelithiasis. Gallbladder distention may be secondary to fasting or acute cholecystitis. Correlate with physical exam. - symptom onset 3-4 days ago - risk factors for CAP:? none - complicating factors: smoker, likely has emphysema - started on ceftriaxone and doxycycline on 05/15 - add steroids: Solu-Medrol 125 IVP x1, then Prednisone 40 mg p.o. daily x5 days, given patient likely has underlying COPD - blood cultures obtained on 05/15 - sputum culture ordered, if obtainable - no supplemental O2 need - supportive care nebs iveth tyl prn ester sultana p.r.n. - trend labs Mild emphysema on CTA no PE 05/16: Patient still has productive cough with phlegm, continue antibiotics, discontinue methylprednisone, changed to prednisone 40 mg daily p.o. Cholelithiasis. Gallbladder distention may be secondary to fasting or acute cholecystitis. - gallbladder symptoms: pain between shoulder blades and mild epigastric pain with moderate to deep palpation. - no sudden flank pain - renal US laurie - US RUQ - trend renal function - monitor LFTs Consult GS HTN (hypertension): ?Code(s): I10 - Essential (primary) hypertension ?Status:?Acute ?Assessment and Plan: - chronic, currently 182/84 - continue home medications:? Amlodipine 5 mg daily, losartan 100 mg daily - monitor Smoker: ?Code(s): F17.200 - Nicotine dependence, unspecified, uncomplicated ?Status:?Acute ?Assessment and Plan: - 1 PPD x 56 years - discussed smoking cessation0, currently in contemplative phase of readiness Subjective Date/time seen: 05/18/23 10:08 Interval history: I saw and exam patient in the morning today, patient had a AFib today, patient denies chest pain, lightheadedness. Has mild cough without phlegm. Echocardiogram was done, pending report. Exam Narrative: GENERAL: Pleasant, in no acute distress. Well-nourished. - EYES: EOMI. Anicteric. - HENT: Moist mucous membranes. - LUNGS: Clear to auscultation bilaterally, no wheezing, rhonchi, or rales. - CARDIOVASCULAR: Regular rate and rhythm. No murmur. No JVD. - AB
[2023-05-18 10:14] LABS: Partial Thromboplastin Time 57.7 Seconds (22.3-36.8)
[2023-05-18] MEDS: HEPARIN SODIUM 5,000 UNITS/ML VIAL 3500 UNITS IV PUSH (10:22)
[2023-05-18] MEDS: PERFLUTREN LIPID MICROSPHERES 1.5 ML VIAL DILUTED TO 10 ML TOTAL VOLUME IV PUSH (11:23)
[2023-05-18] MEDS: AMIODARONE 150 MG/D5W 100 ML 150 MG/100 ML BAG 600 MG IV CONT (12:01)
[2023-05-18] MEDS: AMIODARONE 360 MG/D5W 200 ML 360 MG/200 ML BAG 33.33 MG IV CONT (12:15)
--- NOTE | 2023-05-18 13:04 | IVDEFINITY ---
Prior to administration of IV Definity the patient was educated on the risks and benefits of the imaging enhancing agent including potential adverse side effects. The patient verbalized understanding. Allergies were verified. No exclusion criteria were identified and at least one of the following inclusion criteria were met: 1) physician request, 2) patient technically difficult to image (per the [employer] guidelines of two or more segments not discernable within the apical view), or 3) questionable left ventricular function. ?
[2023-05-18 17:34] LABS: Partial Thromboplastin Time 82.6 Seconds (22.3-36.8)
[2023-05-18] MEDS: DOXYCYCLINE 100 MG/NS 100 ML 100 MG/100 ML BAG IVPB (17:55)
[2023-05-18] MEDS: AMIODARONE 360 MG/D5W 200 ML 360 MG/200 ML BAG 16.67 MG IV CONT (17:57)
[2023-05-18] MEDS: APIXABAN 5 MG TABLET PO (18:21)
[2023-05-18] MEDS: HEPARIN SOD/D5W 100 UNITS/ML 25,000 UNITS/250 ML BAG 20 UNITS IV CONT (18:21)
[2023-05-19] VITALS (19 sets, daily range): BP systolic 143–158; BP diastolic 70–78; PULSE 65–88; RESP 14–18; TEMP 36.2–36.6; O2SAT 94–96
[2023-05-19] MEDS: IPRATROPIUM 0.5 MG/ALBUTEROL SULFATE 2.5 MG AMPUL.NEB 3 ML INHALATION ×2 (01:36→07:54)
[2023-05-19] MEDS: AMIODARONE 360 MG/D5W 200 ML 360 MG/200 ML BAG 16.67 MG IV CONT (06:35)
--- NOTE | 2023-05-19 08:20 | PM.PNCARD ---
Progress Note: A&P Assessment and Plan (1) Atrial flutter with rapid ventricular response: Code(s): I48.92 - Unspecified atrial flutter Status: Acute Assessment and Plan: Patient presents with new onset atrial flutter which was symptomatic with fluttering, chest pain weakness improved with reversion sinus rhythm after IV metoprolol. He reverted back to atrial flutter, rate in the 150's yesterday. Now NSR. -CHADS2 Vasc score 2. Systemic anticoagulation advised. Continue a/c with Eliquis 5mg b.i.d. -Converted to sinus rhythm on IV amiodarone. Will d/c IV amio and transition to oral maintenance dose, 200mg daily. (2) Elevated troponin: Code(s): R79.89 - Other specified abnormal findings of blood chemistry Status: Acute Assessment and Plan: Mild troponin elevation with flat curve not consistent with acute coronary syndrome and/or plaque rupture most likely consistent with type 2 infarction related to demand ischemia in the setting of pneumonia and atrial flutter with rapid ventricular response. -recommend outpatient noninvasive ischemic evaluation (3) Chest pain: Qualifiers: Chest pain type: unspecified Qualified Code(s): R07.9 - Chest pain, unspecified Code(s): R07.9 - Chest pain, unspecified Status: Acute Assessment and Plan: Resolved with termination of atrial flutter. Most likely consistent with atrial tachyarrhythmia cannot exclude underlying CAD as above. Outpatient ischemic evaluation. (4) Pneumonia: Code(s): J18.9 - Pneumonia, unspecified organism Status: Acute Assessment and Plan: Management per primary service. Continue IV ceftriaxone and doxycycline. (5) HTN (hypertension): Code(s): I10 - Essential (primary) hypertension Status: Acute Assessment and Plan: In view of reduced LVEF on echo, will shift losartan to Entresto, add spironolactone, and change metoprolol tartrate to succinate. Further adjustments/optimization can be made as an outpatient. (6) Hypokalemia: Code(s): E87.6 - Hypokalemia Status: Acute Assessment and Plan: Check BMP (7) Smoker: Code(s): F17.200 - Nicotine dependence, unspecified, uncomplicated Status: Acute Assessment and Plan: Smoking cessation counseling. (8) Cardiomyopathy: Code(s): I42.9 - Cardiomyopathy, unspecified Status: Acute Assessment and Plan: Echocardiogram revealed depressed LV function EF 35% yet this interpretation may be confounded due to rapid tachycardia during this study. Transition losartan to Entresto 49-51mg b.i.d. Shift metoprolol tartrate to Toprol XL 25mg daily Add spironolactone 25mg daily Repeat assessment of EF as outpatient with limited echo Outpatient ischemic eval (probably lexiscan) If his BP remains stable with changes to his medical regimen he can be discharged home later today with close outpatient follow up in our office which I have arranged. Subjective Date/time seen: 05/19/23 08:20 Interval history: Cardiology follow up for atrial flutter Date of service 05/18/2023: Patient went back into atrial flutter with RVR. He is asymptomatic but very upset stating he needs to get home today to take care of his . He states he is leaving the hospital today regardless of whether or not his arrhythmia is under control. Obviously he was told that this would not be advised. Date of service 05/19/2023: He feels very well this morning, no cardiovascular complaints. He converted to sinus rhythm yesterday and is maintaining sinus now. Review of Systems Review of Systems: Remainder of the review of systems is otherwise negative aside from that noted in the HPI. All systems reviewed & are unremarkable except as noted in HPI and below Constitutional: Constitutional: Reports as per HPI and Reports no additional constitutional complaints Eyes: Eyes: Reports as per HPI and Report
[2023-05-19] MEDS: amLODIPine BESYLATE 5 MG TABLET PO (09:51)
[2023-05-19] MEDS: METOPROLOL SUCCINATE EXT REL 25 MG TABCR PO (09:51)
[2023-05-19] MEDS: predniSONE 20 MG TABLET 40 MG PO (09:51)
[2023-05-19] MEDS: AMIODARONE HCL 200 MG TABLET PO (09:51)
[2023-05-19] MEDS: APIXABAN 5 MG TABLET PO (09:51)
[2023-05-19] MEDS: SACUBITRIL/VALSARTAN 49-51 MG TABLET 1 TABLET PO (09:52)
[2023-05-19] MEDS: SPIRONOLACTONE 25 MG TABLET PO (09:52)
--- NOTE | 2023-05-19 10:31 | PM.IMPN ---
Progress Note: A&P Assessment and Plan (1) Atrial fibrillation with rapid ventricular response: Code(s): I48.91 - Unspecified atrial fibrillation Status: Acute (2) Pneumonia: Code(s): J18.9 - Pneumonia, unspecified organism Status: Acute (3) HTN (hypertension): Code(s): I10 - Essential (primary) hypertension Status: Acute (4) Smoker: Code(s): F17.200 - Nicotine dependence, unspecified, uncomplicated Status: Acute Plan Atrial flutter/tachycardia with RVR found UOA Now has sinus rhythem start heparin, no need for emergent catheterization, and give metoprolol.? If not able to resolve AFib RVR, start esmolol gtt. - started on heparin gtt - CHADS Vasc: 2, if echo shows HF will be a 3 - given metoprolol 5 mg IVP, then started on metoprolol 25 mg p.o., continue b.i.d. - add lipid panel - no previous echo or stress test on file, echo ordered - telemetry monitoring Appreciate cardiology consultation, continue metoprolol 50 mg b.i.d. p.o., discontinue heparin drip, start Eliquis 5 mg b.i.d. p.o. 4/ paroxysmal AFib today, hemodynamically stable, 4/2 change amio from iv to po 200mg daily po SYSTOLIC HEART FAILURE Echocardiogram reports ? 1. Left ventricular chamber dimension is normal. ? 2. Left ventricular systolic function is moderately reduced, estimated at 30-35% with hypokinesis of the mid and basal inferior wall.? Accurate assessment of LV systolic function difficult secondary to atrial flutter with rapid ventricular response.? Consider repeat limited study to assess LV function once heart rate better controlled. ? 3. There is moderately increased left ventricular wall thickness. ? 4. The left ventricular diastolic function is indeterminate. ? 5. Technically difficult study.? Definity contrast enhancement administered. ? 6. Left atrial chamber dimension is moderately enlarged. ? 7. There is no aortic valve stenosis. ? 8. There is trace mitral valve regurgitation. ? 9. There is mild tricuspid valve regurgitation. ? 10. No pulmonary hypertension, estimated pulmonary arterial systolic pressure is 23 mmHg. Cardiology considers this interpretation may be confounded due to rapid tachycardia during this study. Start a Entresto 1 tab b.i.d. p.o., spironolactone 25 mg daily p.o., metoprolol 25 mg daily p.o. Pneumonia: ?Code(s): J18.9 - Pneumonia, unspecified organism ?Status:?Acute ?Assessment and Plan: - CXR: 1. Airspace opacities in right mid and upper lung zones with volume loss, consistent with atelectasis/scarring versus pneumonia. 2. Enlargement of the right hilum suspicious for lymphadenopathy. Consider chest CT. - CTA of Chest 1. Scarring in right lung upper lobe. 2. Mild right hilar lymphadenopathy, likely reactive. 3. Mild emphysema. 4. Small right pleural effusion. 5. No pulmonary embolus. 6. Partially visualized severe stenosis versus occlusion of right renal artery with partially visualized atrophy and and hypoenhancement of right kidney. 7. Cholelithiasis. Gallbladder distention may be secondary to fasting or acute cholecystitis. Correlate with physical exam. - symptom onset 3-4 days ago - risk factors for CAP:? none - complicating factors: smoker, likely has emphysema - started on ceftriaxone and doxycycline on 05/15 - add steroids: Solu-Medrol 125 IVP x1, then Prednisone 40 mg p.o. daily x5 days, given patient likely has underlying COPD - blood cultures obtained on 05/15 - sputum culture ordered, if obtainable - no supplemental O2 need - supportive care nebs iveth tyl prn ester sultana p.r.n. - trend labs Mild emphysema on CTA no PE 05/16: Patient still has productive cough with phlegm, continue antibiotics, discontinue methylprednisone, changed to prednisone 40 mg daily p.o. 05/18: Patient denies cough, shortness of breath. Patient afebrile blood pressure stable, Cholelithiasis. Gallbladder distention may be secondary to fasting or acute
[2023-05-19 11:52] LABS: Anion Gap 5 mmol/L (4-12); Blood Urea Nitrogen 23 mg/dL (9-20); Calcium 8.7 mg/dL (8.4-10.2); Carbon Dioxide 30 mmol/L (22-30); Chloride 99 mmol/L (98-107); Estimated CRCL calculation 64 ml/min; Estimated Glomerular Filt Rate > 60; Glucose 110 mg/dL (65-110); Potassium 3.7 mmol/L (3.4-5.0); Sodium 134 mmol/L (137-145)
--- NOTE | 2023-05-19 13:39 | PM.DS ---
DS: Admitting Diagnosis Discharge Date 05/18 Admitting Diagnosis (1) Atrial fibrillation with rapid ventricular response: ?Code(s): I48.91 - Unspecified atrial fibrillation ?Status:?Acute (2) Pneumonia: ?Code(s): J18.9 - Pneumonia, unspecified organism ?Status:?Acute (3) HTN (hypertension): ?Code(s): I10 - Essential (primary) hypertension ?Status:?Acute (4) Smoker: ?Code(s): F17.200 - Nicotine dependence, unspecified, uncomplicated ?Status:?Acute DS: Discharge Diagnosis Discharge Diagnosis (1) Atrial fibrillation with rapid ventricular response: Code(s): I48.91 - Unspecified atrial fibrillation Status: Acute (2) Pneumonia: Code(s): J18.9 - Pneumonia, unspecified organism Status: Acute (3) HTN (hypertension): Code(s): I10 - Essential (primary) hypertension Status: Acute (4) Smoker: Code(s): F17.200 - Nicotine dependence, unspecified, uncomplicated Status: Acute DS: Summary Hospital Course Hospital Course: Per H&P 67 y/o M presents here with chest pain with PMH of HTN and current smoker. Patient presents here from home via EMS for further evaluation of chest pain and flu like symptoms.? Patient reports that he began to feel unwell approximately 3-4 days ago.? Initially started with body aches, fatigue, and intermittent/shallow/intermittently productive cough.? Developed intermittent chest pain yesterday around 1999 (Thursday).? Described the chest pain as burning, 7/10, radiating (more so from between his shoulder blades and into the front) and lasting for 5-10 initially, then progressed to longer time frames until it was constant around 1330 Thursday afternoon.? Patient unable to estimate how many episodes of chest pain occurred. Patient then called EMS, who gave him 3 nitro and 324 of ASA with partially resolution.? STEMI alert in the field, EKG was transmitted which appeared to be AFib versus Aflutter with rate in the 140s.? Repeat EKG upon arrival showed atrial flutter.? No emergent cardiac catheterization indicated.? No alleviating or aggravating factors identified by patient, did have some relief with nitro and ASA.? Denies any further cardiac history beyond hypertension.? No history of dysrhythmia.? No recent nausea, vomiting, diarrhea, or epigastric pain.? No acute onset of flank pain or abdominal pain. Caffeine intake estimated at 40+ oz of coffee daily. Alcohol use is daily 2-3 beers, previously heavy. Initial VS at presentation:? 98.0? F, HR 151, RR 20, 149/114, and 93% on room air. ED workup showed: WBC 12.4, HGB 13.7, sodium 133, potassium 3.3, creatinine 0.9, glucose 121, initial troponin 0.079, BNP 4390, and viral PCR negative.? LFTs and lipase unremarkable.? CXR showed airspace opacities in the right mid and upper lung zones with volume loss and enlargement of the right hilum suspicious for lymphadenopathy. The following med issues have been addressed during hospitalization Atrial flutter/tachycardia with RVR found UOA Now has sinus rhythem start heparin, no need for emergent catheterization, and give metoprolol.? If not able to resolve AFib RVR, start esmolol gtt. - started on heparin gtt - CHADS Vasc: 2, if echo shows HF will be a 3 - given metoprolol 5 mg IVP, then started on metoprolol 25 mg p.o., continue b.i.d. - add lipid panel - no previous echo or stress test on file, echo ordered - telemetry monitoring Appreciate cardiology consultation, continue metoprolol 50 mg b.i.d. p.o., discontinue heparin drip, start Eliquis 5 mg b.i.d. p.o. 4/ paroxysmal AFib today, hemodynamically stable, 4/2 change amio from iv to po 200mg daily po SYSTOLIC HEART FAILURE Echocardiogram reports ? 1. Left ventricular chamber dimension is normal. ? 2. Left ventricular systolic function is moderately reduced, estimated at 30-35% with hypokinesis of the mid and basal inferior wall.? Accurate assessment of LV systolic function difficult seco
== END 2023-05-19 14:55 | disposition home or self-care (01) | DRG 280 ==
LOC: ANHED 15:20 → ANHIMU 18:01
PROVIDERS: Internal Medicine; Internal Medicine Cardiovascular Disease; Nurse Practitioner; Student in an Organized Health Care Education/Training Program; Admitting Provider Internal Medicine; Emergency Provider Student in an Organized Health Care Education/Training Program; PCP Family Medicine; Visit Provider Hospitalist
DX: I48.0 Paroxysmal atrial fibrillation (principal); I50.21 Acute systolic (congestive) heart failure; I21.A1 Myocardial infarction type 2; J18.9 Pneumonia, unspecified organism; K80.00 Calculus of gallbladder with acute cholecystitis without obstruction; I11.0 Hypertensive heart disease with heart failure; I48.92 Unspecified atrial flutter; I42.9 Cardiomyopathy, unspecified; R00.0 Tachycardia, unspecified; R59.1 Generalized enlarged lymph nodes; E87.6 Hypokalemia; F17.210 Nicotine dependence, cigarettes, uncomplicated; Z20.822 Contact with and (suspected) exposure to COVID-19
CPT/HCPCS: 36415; 71045; 71275; 76705; 80048; 80053; 83605; 83690; 83880; 84443; 84484; 85025; 85610; 85730; 87040; 87637; 93005; 93976; 94640; 96361; 96374; 96375; 99285; A9270; C8929; J0282; J0696; J1644; J2930; J7120; J7512; Q9957; Q9967

== ENCOUNTER 2024-09-16 14:09 | Outpatient (CLI) | payer MEDICARE, SELFPAY ==
--- NOTE | ~2024-09-16 | XR_ITS ---
EXAMINATION: XR lg joint inject/asp w image DATE: 09/16/2024 15:03 INDICATION: Primary osteoarthritis of the left hip with left hip pain TECHNIQUE: A time-out was performed to verify the patient's name, date of , and procedure to b e performed. The procedure including the risks, benefits, and alternatives was discussed with the pat ient. Risks discussed included bleeding and infection. The patient understood the risks and agreed to proceed. The skin overlying the left hip joint was prepped and draped in usual sterile fashion. An esthetic was administered with 1% lidocaine subcutaneously. A 22 G needle was advanced under fluoros copic guidance into the joint. Injection of 1 mL of Omnipaque 240 confirmed intra-articular position of the needle. Subsequently, injectate consisting of 5 mm a 4:1 mixture of 1% lidocaine: 40 mg/mL D epo-Medrol for a total dosage of 40 mg Depo-Medrol was instilled. Washout of contrast was seen confir hemant intra-articular administration. The needle was removed and the entry site was cleaned and dresse d. There were no immediate complications. Fluoroscopy exposure time was 0.2 minutes. The total numbe r of images was 1.. Total DAP was 0.804 Gycm^2. FINDINGS: Real-time fluoroscopy demonstrates the needle and contrast in the left hip joint. Patient's pain prior to procedure:10/26. Patient's pain following the procedure: 03/28. IMPRESSION: 1. Successful left hip joint injection of local anesthetic and steroid with decrease in the patient's presenting pain. Reviewed, dictated and finalized at location A. IMPRESSION: 1. Successful left hip joint injection of local anesthetic and steroid with dec rease in the patient's presenting pain.
== END 2024-09-16 14:10 | disposition home or self-care (01) ==
PROVIDERS: PCP Nurse Practitioner Family; Visit Provider Nurse Practitioner Family
DX: M16.12 Unilateral primary osteoarthritis, left hip (principal)
CPT/HCPCS: 20610; 77002; J1010; J2003; Q9966